=== PATIENT | female | born 1960 | race Caucasian/White ===

== ENCOUNTER 2025-04-13 10:28 | Emergency (ER) | payer MEDICAID ==
[~2025-04-13] VITALS: Ht 175.3 cm; Wt 72.0 kg
[2025-04-13 10:33] VITALS: O2SAT 100
[2025-04-13] MEDS ORDERED: IBUP-2030 MT (11:14)
[2025-04-13 11:40] VITALS: BP 145/83; PULSE 84; RESP 16; TEMP 37.2; O2SAT 100
[2025-04-13] MEDS: KETOROLAC 30MG/ML VIAL IM ONE (11:40)
== END 2025-04-13 11:49 | disposition home or self-care (01) ==
LOC: ER 10:28
DX: M25.551 Pain in right hip (principal); I10 Essential (primary) hypertension; Z90.710 Acquired absence of both cervix and uterus
CPT/HCPCS: 99283; 96372; J1885